=== PATIENT | female | born 1945 | race Caucasian/White ===

== ENCOUNTER 2017-10-25 13:49 | Emergency (ER) | payer OTHER ==
[~2017-10-25] VITALS: Ht 170.2 cm; Wt 68.0 kg
[~2017-10-25 13:49] MED LIST: DIOVAN HCT 161 UDTA1; LIPITOR20 MG; NOVOLOG MI100 UNIT/1; SYNTHROID100 MCG
== END 2017-10-25 19:54 | disposition home or self-care (01) ==
LOC: ER 13:49
DX: J06.9 Acute upper respiratory infection, unspecified (principal); J20.8 Acute bronchitis due to other specified organisms

== ENCOUNTER → 2020-08-31 11:39 | Outpatient (CLI) | payer OTHER | END | disposition home or self-care (01) | LOC: LAB 11:39 | DX: Z20.828 Contact with and (suspected) exposure to other viral communicable diseases (principal) ==